=== PATIENT | male | born 1980 | race Two or more races ===

== ENCOUNTER 2024-05-18 11:38 | Emergency (ER) | payer OTHER ==
[~2024-05-18] VITALS: Ht 165.1 cm; Wt 81.6 kg
[2024-05-18 11:48] VITALS: TEMP 98.3
[2024-05-18] MEDS ORDERED: TDAP [DIPH/PERTUSSIS/TET] 0.5 ML VIAL IM ONE (12:06)
[2024-05-18] MEDS ORDERED: BACI/NEOM/POLY B OINT PKT 1 UDPKT PACKET ONE (12:09)
[2024-05-18] MEDS ORDERED: LIDOCAINE 1% INJ 50 ML MDV IJ ONE (12:11)
[2024-05-18] MEDS: TDAP [DIPH/PERTUSSIS/TET] 0.5 ML VIAL IM ONE (12:20)
[2024-05-18] MEDS: BACI/NEOM/POLY B OINT PKT 1 UDPKT PACKET TP ONE (12:21)
[2024-05-18] MEDS: LIDOCAINE 1% INJ 50 ML MDV IJ ONE (12:23)
[2024-05-18] MEDS ORDERED: GELATIN SPONGE,ABSORBABLE 1 EA SPONGE TP ONE (13:52)
[2024-05-18] MEDS: IV NS 0.9% 1,000 ML BAG IV ONE (14:47)
[2024-05-18] MEDS: CEFAZOLIN 2 GM in IV D5W 100 ML IV ONE (14:56)
[2024-05-18 15:00] LABS: BASOPHILS % (AUTO) 0.3 % (0.0-2.0); EOSINOPHILS % (AUTO) 0.4 % (0.0-6.0); HEMATOCRIT 42 % (39-51); HEMOGLOBIN 14.5 g/dL (13.5-17.5); LYMPHOCYTES # (AUTO) 1.2 K/uL (0.8-4.8); LYMPHOCYTES % (AUTO) 13.2 % (20.0-44.0); MEAN CORPUSCULAR HEMOGLOBIN 31 PG (26.0-33.0); MEAN CORPUSCULAR HGB CONC 35 g/dl (31.0-36.0); MEAN CORPUSCULAR VOLUME 88 fL (80-96); MONOCYTES # (AUTO) 0.3 K/uL (0.1-1.30); MONOCYTES % (AUTO) 3.7 % (2.0-12.0); NEUTROPHILS # (AUTO) 7.8 K/uL (1.8-8.9); NEUTROPHILS % (AUTO) 82.4 % (43.0-81.0); PLATELET COUNT (AUTO) 283 K/uL (150-450); RED BLOOD CELL COUNT(AUTO) 4.72 MIL/uL (4.5-6.0); RED CELL DISTRIBUTION WIDTH 13.4 % (11.5-15.0); WHITE BLOOD COUNT (AUTO) 9.5 K/uL (4.3-11.0)
[2024-05-18 15:09] LABS: CALCIUM, SERUM 9.3 mg/dL (8.5-10.1); CREATININE 0.8 mg/dL (0.6-1.3); POTASSIUM 3.9 mmol/L (3.5-5.1)
[2024-05-18 15:12] LABS: INR 0.9 (0.91-1.10); PARTIAL THROMBOPLASTIN TIME 24.3 SEC (24.3-34.3); PROTHROMBIN TIME 9.3 SECS (9.2-11.1)
[2024-05-18 19:25] VITALS: BP 138/85; O2SAT 98
== END 2024-05-18 19:35 | disposition short-term general hospital (02) ==
LOC: ER 11:56
DX: S62.623B Displaced fracture of middle phalanx of left middle finger, initial encounter for open fracture (principal); Z20.822 Contact with and (suspected) exposure to COVID-19; W27.0XXA Contact with workbench tool, initial encounter; Y93.89 Activity, other specified; Y92.89 Other specified places as the place of occurrence of the external cause; Y99.8 Other external cause status
CPT/HCPCS: 12002; 36415; 71045; 73130; 80048; 85025; 85730; 87426; 90471; 90715; 93005; 96365; 99291; A6403; J0690; J3490; J7030; J7060